=== PATIENT | female | born 1995 | race Caucasian/White ===

== ENCOUNTER 2024-01-13 08:44 | Outpatient (CLI) | payer OTHER, SELFPAY ==
--- OUTSIDE RECORDS SUMMARY | 2024-01-13 08:48 | XMS_ITS | Clinical Summary ---
Author Organization [facility] Address [address] [place] [id number] Care Team Providers Care Drag Down Name Role Phone Wanda Arana PA-C Primary Care Provider [phone] Source Comments You are receiving this document as you are listed as the primary care provider,follow-up provider, or the patient has been referred to you for consultation.This is in compliance with the Medicare and[facility] EHR Incentive Program,which states Providers who transition their patient to another setting of careor provider of care or refers their patient to another provider of care shouldprovide summary care record for each transition of care or referral. [facility] Allergies No known active allergies Medications No known medications Social History Tobacco Use Types Packs/Day Years Used Date Smoking Tobacco: Never Assessed Sex and Gender Information Value Date Recorded Sex Assigned at Not on file Gender Identity Not on file Sexual Orientation Not on file Plan of Treatment Health Maintenance Due Date Last Done Comments Cervical Cancer Screening Due 1995 Hep C Screening (Preventive Services) 1995 MTM Covered 1995 HIV Screening (Preventive Services) 2011 Adult Preventive Visit 11/22/2013 HepB (1) 11/22/2014 COVID-19 Vaccine ( season) 2023 08/02/2020 Influenza (#1) 2023 01/08/2020, 05/28, 05/25/2015, Additional history exists DTaP/Tdap/Td (8 - Tdap) 11/06/2029 11/07/19 20, 12/22/2006, 12/01/2000, Additional history exists Zoster/Shingles (1 of 2) 11/22/2045 Hib Completed 03/22/1997, 04/28, 03/16/1996, Additional history exists IPV (Polio) Completed 12/01/2000, 04/28, 03/16/1996, Additional history exists MCV4 Aged Out 12/22/2006 No longer eligi ble based on patient's age to complete this topic HepA Completed 12/20/2007, 12/22/2006 HPV Vaccine Aged Out No longer eligi ble based on patient's age to complete this topic Pneumococcal Aged Out No longer eligi ble based on patient's age to complete this topic Care Teams Drag Down Relationship Specialty Start Date End Date Wanda Arana PA-C [address] [place] [address] 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
[2024-01-13 15:06] LABS: Chlamydia DNA Amplified* NOT DETECTED (No Detected); GC DNA Amplified* NOT DETECTED (No Detected)
== END 2024-01-13 08:45 | disposition home or self-care (01) ==
PROVIDERS: PCP Physician Assistant Medical; Visit Provider Physician Assistant Medical
DX: Z11.3 Encounter for screening for infections with a predominantly sexual mode of transmission (principal); Z13.220 Encounter for screening for lipoid disorders; Z13.29 Encounter for screening for other suspected endocrine disorder; Z13.1 Encounter for screening for diabetes mellitus
CPT/HCPCS: 80061; 82947; 84443; 86703; 86803; 87491; 87591; 88141; 88142

== ENCOUNTER 2025-01-12 15:06 | Outpatient (CLI) | payer BC, SELFPAY | END 2025-01-12 15:07 | disposition home or self-care (01) | LOC: NFLDREF 15:06 | PROVIDERS: PCP Physician Assistant Medical; Visit Provider Physician Assistant | DX: R68.89 Other general symptoms and signs (principal) | CPT/HCPCS: 84439; 84443 ==

== ENCOUNTER 2025-03-02 10:55 | Outpatient (CLI) | payer BC, SELFPAY | END 2025-03-02 10:56 | disposition home or self-care (01) | LOC: NFLDREF 03-06 04:16 | PROVIDERS: PCP Physician Assistant Medical; Referring Provider Physician Assistant Medical; Visit Provider Physician Assistant | DX: R68.89 Other general symptoms and signs (principal) | CPT/HCPCS: 84443 ==